=== PATIENT | male | born 1970 | race Two or more races ===

== ENCOUNTER 2021-01-14 16:55 | Inpatient (IN) | payer OTHER ==
[~2021-01-14] VITALS: Ht 180.3 cm; Wt 61.7 kg
--- NOTE | 2021-01-14 17:30 | NUR ---
, from home, c/o abd pain since last night, and nausea 10/10 pain scale. Patient paraplegic, a/ox4, breathing even and unlabored, no sob noted. Placed on the bus monitor. patient is now c/o headache.
--- NOTE | 2021-01-14 17:40 | NUR ---
DR. MEZA AT BEDSIDE FOR EVAL
--- NOTE | 2021-01-14 17:49 | NUR ---
IV LINE ESTABLISHED, BLOOD DRAWN AND SENT TO LAB.
[2021-01-14] MEDS ORDERED: MORPHINE SULFATE INJ 4 MG/ML DISP.SYRIN ONE (17:52)
[2021-01-14] MEDS ORDERED: ONDANSETRON HCL/PF 4 MG/2 ML VIAL ONE (17:52)
[2021-01-14] MEDS ORDERED: MORPHINE SULFATE INJ 2 MG/ML DISP.SYRIN IV ONE (18:00)
[2021-01-14] MEDS ORDERED: ONDANSETRON HCL/PF 4 MG/2 ML VIAL IVP ONE (18:00)
[2021-01-14 18:09] LABS: BASOPHILS # (AUTO) 0.1 K/uL (0.0-0.2); BASOPHILS % (AUTO) 0.6 % (0.0-2.0); HEMATOCRIT 44 % (39-51); LYMPHOCYTES # (AUTO) 2.2 K/uL (0.8-4.8); LYMPHOCYTES % (AUTO) 24.5 % (20.0-44.0); MEAN CORPUSCULAR HGB CONC 34 g/dl (31.0-36.0); MEAN CORPUSCULAR VOLUME 86 fL (80-96); MONOCYTES # (AUTO) 0.4 K/uL (0.1-1.30); MONOCYTES % (AUTO) 4.5 % (2.0-12.0); NEUTROPHILS # (AUTO) 6.1 K/uL (1.8-8.9); NEUTROPHILS % (AUTO) 69.4 % (43.0-81.0); PLATELET COUNT (AUTO) 243 K/uL (150-450); RED BLOOD CELL COUNT(AUTO) 5.08 MIL/uL (4.5-6.0); WHITE BLOOD COUNT (AUTO) 8.8 K/uL (4.3-11.0)
[2021-01-14 18:17] LABS: BILIRUBIN,URINE NEGATIVE (NEGATIVE); COLOR,URINE YELLOW (YELLOW); LEUKOCYTE ESTERASE ,URINE NEGATIVE (NEGATIVE); NITRITE, URINE NEGATIVE (NEGATIVE); PROTEIN,URINE NEGATIVE (NEGATIVE); UGLUCOSE NEGATIVE (NEGATIVE); UROBILINOGEN,URINE 0.2 EU/dL (0.2)
[2021-01-14 18:30] LABS: CALCIUM, SERUM 9.5 mg/dL (8.5-10.1); CARBON DIOXIDE 16 mmol/L (21-32); CHLORIDE 102 mmol/L (98-107); GLUCOSE 119 mg/dL (74-106); POTASSIUM 4.6 mmol/L (3.5-5.1); SODIUM SERUM 137 mmol/L (136-145); UREA NITROGEN, BLOOD 18 mg/dL (7-18)
[2021-01-14 18:36] LABS: ALANINE AMINOTRANSFERASE 26 U/L (12-78); ALBUMIN 4.2 g/dL (3.4-5.0); ALKALINE PHOSPHATASE 102 U/L (46-116); ASPARTATE AMINOTRANSFERASE 17 U/L (15-37); BILIRUBIN,DIRECT 0.1 mg/dL (0.0-0.2); BILIRUBIN,TOTAL 0.5 mg/dL (0.2-1.0); LIPASE 235 U/L (73-393); TOTAL PROTEIN, SERUM 8.1 g/dL (6.4-8.2)
[2021-01-14 18:57] LABS: ABG BASE EXCESS -0.2 mmol/L; ABG OXYGEN SATURATION 98.1 % (92.0-98.5); ABG PCO2 16.8 mmHg (35.0-45.0); ABG PH 7.637 (7.350-7.450); ABG PO2 108.9 mmHg (75.0-100.0); AaDO2 20.7 mmHg; COHb 0.9 % (0.5-1.5); MetHb 0.4 % (0.0-1.5); O2Hb 96.8 % (94.0-97.0); SITE, ABG Right Radial; VENT MODE, BG room air
[2021-01-14] MEDS ORDERED: IV NS 0.9% 1,000 ML BAG IV ONE ×2 (19:00→20:00)
[2021-01-14] MEDS ORDERED: HYDROMORPHONE 1 MG/1 ML DISP.SYRIN IV ONE (19:30)
[2021-01-14 19:37] LABS: ACETAMINOPHEN 0 ug/ml (10-30); ALCOHOL, BLOOD < 3 mg/dL (0-0)
--- NOTE | 2021-01-14 19:38 | NUR ---
LACTIC 3.6
--- NOTE | 2021-01-14 19:39 | NUR ---
PATIENT TAKEN TO CT
[2021-01-14] MEDS ORDERED: HYDROMORPHONE 1 MG/1 ML DISP.SYRIN ONE (19:45)
--- NOTE | 2021-01-14 19:53 | NUR ---
COVID SWAB COLLECTED AND SENT TO LAB
[2021-01-14] MEDS ORDERED: PIPERACILLIN /TAZOBACTAM 3.375 G in IV D5W 50 ML IV ONE (20:00)
--- NOTE | 2021-01-14 20:11 | NUR ---
CALLED DR. RAO AND LEFT VOICEMAIL ON [phone]
[2021-01-14] MEDS ORDERED: PIPERACILLIN /TAZOBACTAM 3.375 G VIAL IV ONE (20:22)
--- NOTE | 2021-01-14 20:26 | NUR ---
Erasto tse in EDM - 01/14/21 at [address] BARAHONA FOR ED CONSULT AT [phone]
--- NOTE | 2021-01-14 20:27 | NUR ---
CALLED DR. BARAHONA FOR ED CONSULT AT [phone]
--- NOTE | 2021-01-14 20:28 | NUR ---
DR. MEZA AND DR. BARAHONA ARE SPEAKING TO EACH OTHER
[2021-01-14] MEDS ORDERED: IOHEXOL-350 100 ML VIAL IV ONE (20:46)
[2021-01-14] MEDS ORDERED: IV NS 0.9% 250 ML IV ONE (20:47)
[2021-01-14 22:49] LABS: ABG BASE EXCESS -5.7 mmol/L; ABG OXYGEN SATURATION 96.1 % (92.0-98.5); ABG PCO2 39.4 mmHg (35.0-45.0); ABG PH 7.322 (7.350-7.450); ABG PO2 95.6 mmHg (75.0-100.0); COHb 0.3 % (0.5-1.5); MetHb 0.5 % (0.0-1.5); O2Hb 95.3 % (94.0-97.0); SITE, ABG Left Radial; VENT MODE, BG room air
--- NOTE | 2021-01-14 23:07 | NUR ---
REPORT GIVEN TO DEISY GOULD
--- NOTE | 2021-01-14 23:29 | NUR ---
MS DEISY NOTES PT ARRIVED TO UNIT VIA GURNEY ACCOMPANIED BY EMT AND RN. PT A/O X4 SAO TOMEAN SPEAKING BUT UNDERSTANDS SOME EMIRATI. PT REPORTING NO PAIN OR DISCOMFORT AT THIS TIME. PT ON ROOM AIR TOLERATING WELL. PT HAS IV ACCESS ON THE LAC 20G INTACT NO REDNESS OR SWELLING AT SITE. NOTED PATIENT WITH SACRAL SCARS PICTURES TAKEN AND PLACED IN CHART. PT ORIENTED TO ROOM AND UNIT. ALL NURSING NEEDS MET AT THIS TIME. ALL DUE MEDS GIVEN AND TOLERATED WELL. HOB ELEVATED FOR SAFETY BED IN A LOW LOCKED POSITION FOR SAFETY. PT MED RECON DONE. MEDICATIONS TAKEN AND WILL BE GIVEN TO PHARMACY IN THE AM. WILL OCNTINUE TO MONITOR. Addendum: 01/15/21 at 0639 by CHUCK ALDANA RN PT HERE FOR ABDOMINAL PAIN WITH N/V . PER PT HE HAS HAD THIS PAIN BEFORE AND WAS ABLE TO RELIEVE THE PAIN BY DOING A SUPPOSITORY (PT IS DEPENDENT ON THEM DAILY AND TAKING ANTI GAS MEDICATION WITH SOMETIMES MANUAL PRESSURE TO THE ABDOMINAL AREA TO RELIEVE GAS. HOWEVER PAIN HAS PERSISTED DESPITE ALL THE USUAL INTERVENTIONS HE DOES AT HOME. PT STATES HE WAS ALSO TAKING ATB FOR UTI FOR THE PAST 5 DAYS.
[2021-01-14] MEDS ORDERED: Z GUARD REMEDY 2 OZ OINT TP PRN (23:30)
[2021-01-14] MEDS ORDERED: ACETAMINOPHEN 325 MG TABLET PO PRN (23:30)
[2021-01-14] MEDS ORDERED: MAG HYDROX/AL HYDROX/SIMETH 30 ML UDC PO PRN (23:30)
[2021-01-14] MEDS ORDERED: MAGNESIUM HYDROXIDE 30 ML UDC PO PRN (23:30)
--- NOTE | 2021-01-14 23:45 | NUR ---
PATIENT TRANSFERRED UNDER ACLS
[2021-01-15] MEDS ORDERED: SULF1TAB47 PO (00:15)
[2021-01-15] MEDS ORDERED: LACT10SO68 PO (00:15)
[2021-01-15] MEDS ORDERED: BACL20TA PO (00:15)
[2021-01-15] MEDS ORDERED: DICY10CA37 PO (00:15)
[2021-01-15] MEDS: ENOXAPARIN SODIUM 40 MG/0.4 ML DISP.SYRIN SQ SCH ×2 (00:35→22:25)
[2021-01-15] MEDS: MORPHINE SULFATE INJ 2 MG/ML DISP.SYRIN IV PRN ×2 (00:36→04:40)
[2021-01-15] MEDS: IV NS 0.9% 1,000 ML IV PRN ×2 (00:37→14:50)
--- NOTE | 2021-01-15 01:00 | NUR ---
MS RN NOTES PT REPORTING ABDOMINAL PAIN 8/10 ON A NUMERIC PAIN SCALE. PRN PAIN MEDICATION PROVIDED AND TOLERATED WELL. PT STARTED ON NS @ 75ML.HR. WILL CONTINUE TO MONITOR.
[2021-01-15 04:00] VITALS: BP 166/105
--- NOTE | 2021-01-15 05:06 | NUR ---
MS RN NOTES PRN MORPHINE GIVEN PT HAD 8/10 ON A NUMERIC PAIN SCALE. WILL CONTINUE TO MONITOR.
[2021-01-15] MEDS: ONDANSETRON HCL/PF 4 MG/2 ML VIAL IVP PRN ×3 (05:11→22:33)
[2021-01-15] MEDS ORDERED: BISACODYL SUPP (10 MG) 10 MG/SUPP.RECT SUPP.RECT RC PRN (05:30)
[2021-01-15] MEDS: HYDROCODONE/APAP 5/325MG TABLET PO PRN ×2 (06:02→16:15)
--- NOTE | 2021-01-15 06:02 | NUR ---
MS OLIVAS NOTES PT GIVEN SUPPOSITORY FOR CONSTIPATION AND NORCO FOR BREAKTHROUGH PAIN. WILL CONTINUE TO MONITOR Addendum: 01/15/21 at 0652 by CHUCK ALDANA RN ZOFRAN GIVEN FOR NAUSEA WELL
--- NOTE | 2021-01-15 06:18 | NUR ---
MS RN NOTES REPORTED TO LEO AGUAYO PT STATED MORPHINE ISN'T VERY EFFECTIVE FOR PAIN MANAGEMENT APARTMENT MAINTENANCE SUPERVISOR AND THAT PT SBP IS 166/100. RECEIVED NEW ORDERS TO D/C MORPHINE AND START PT ON DILAUDID 0.5. WILL CONTINUE TO MONITOR.
--- NOTE | 2021-01-15 06:48 | NUR ---
MS RN NOTES PT A/O X4 AWAKE ALL DUE MEDS GIVEN AND TOLERATED WELL. ALL NURSING NEEDS MET. PT KEPT CLEAN AND DRY AT ALL TIMES. WILL ENDORSE CARE TO DAY SHIFT NURSE.
[2021-01-15 07:19] LABS: BASOPHILS % (AUTO) 0.6 % (0.0-2.0); EOSINOPHILS % (AUTO) 1.4 % (0.0-6.0); HEMATOCRIT 37 % (39-51); HEMOGLOBIN 12.6 g/dL (13.5-17.5); LYMPHOCYTES # (AUTO) 1.4 K/uL (0.8-4.8); LYMPHOCYTES % (AUTO) 19.3 % (20.0-44.0); MEAN CORPUSCULAR HGB CONC 34 g/dl (31.0-36.0); MEAN CORPUSCULAR VOLUME 88 fL (80-96); MONOCYTES # (AUTO) 0.4 K/uL (0.1-1.30); MONOCYTES % (AUTO) 5.7 % (2.0-12.0); NEUTROPHILS # (AUTO) 5.2 K/uL (1.8-8.9); PLATELET COUNT (AUTO) 215 K/uL (150-450); RED BLOOD CELL COUNT(AUTO) 4.27 MIL/uL (4.5-6.0); WHITE BLOOD COUNT (AUTO) 7.1 K/uL (4.3-11.0)
[2021-01-15 07:51] LABS: CALCIUM, SERUM 8.4 mg/dL (8.5-10.1); CREATININE 0.7 mg/dL (0.6-1.3); PHOSPHORUS 3.4 mg/dL (2.5-4.9); POTASSIUM 3.9 mmol/L (3.5-5.1)
[2021-01-15] MEDS ORDERED: ONDA4TAB5 PO (07:51)
[2021-01-15] MEDS ORDERED: DOCU-141 PO (07:51)
[2021-01-15 07:55] LABS: THYROID STIMULATING HORMONE 1.572 uIU/mL (0.358-3.74)
--- NOTE | 2021-01-15 07:56 | NUR ---
FIELD OBSERVER OPENING NOTES RECEIVED PATIENT IN BED, AWAKE, A/O X4. PATIENT ON ROOM AIR; BREATHING EVEN AND UNLABORED; NO SOB AT THIS TIME. TELE MONITOR WITH A READING OF SR 65. NO COMPLAINS OF PAIN AT THIS MOMENT. LAC IV ACCESS G #20 PRESENT AND INTACT INFUSING NS @ 75 MLS/HR. SAFETY PRECAUTIONS IN PLACE; BED IN LOW POSITION AND LOCKED, RAILS UP X2, CALL LIGHT WITHIN REACH. WILL CONTINUE TO MONITOR PATIENT.
[2021-01-15 08:00] VITALS: BP 114/64
[2021-01-15] MEDS: HYDROMORPHONE 1 MG/1 ML DISP.SYRIN IV PRN ×4 (08:30→22:26)
[2021-01-15] MEDS: PANTOPRAZOLE 40 MG TABLET.DR PO SCH (08:34)
--- NOTE | 2021-01-15 08:34 | NUR ---
ERP IMPLEMENTATION CONSULTANT NOTES PATIENT COMPLAINING OF PAIN 9 OUT OF 10 IN HIS ABDOMINAL AREA. PRN DILAUDID ADMINISTERED. WILL REASSESS.
[2021-01-15] MEDS ORDERED: DICYCLOMINE HCL 10 MG CAPSULE PO PRN (10:30)
[2021-01-15] MEDS ORDERED: DOCUSATE SODIUM 100 MG CAPSULE PO PRN (10:30)
[2021-01-15] MEDS ORDERED: Medication Not On Formulary EA (Ondansetron Hcl (Zofran) 4 MG) PO PRN (10:30)
[2021-01-15] MEDS ORDERED: LACTULOSE 10 G/15 ML UDC (PYXIS) PO PRN (11:00)
[2021-01-15] MEDS ORDERED: PARO30TA74 PO (12:06)
[2021-01-15] MEDS: BACLOFEN (10 MG) 10 MG TABLET PO SCH ×2 (12:22→16:47)
[2021-01-15] MEDS: PAROXETINE HCL 20 MG TABLET PO SCH (12:23)
[2021-01-15 13:17] VITALS: BP 142/98
--- NOTE | 2021-01-15 15:20 | NUR ---
ATV MECHANIC NOTES PATIENT COMPLAINING OF PAIN 8 OUT OF 10 IN HIS ABDOMINAL AREA. PRN DILAUDID ADMINISTERED. WILL REASSESS.
--- NOTE | 2021-01-15 15:29 | NUR ---
HIGH SCHOOL MUSIC INSTRUCTOR NOTES PATIENT COMPLAINING OF NAUSEA; ASKING FOR NAUSEA MEDICATION. PRN ZOFRAN ADMINISTER. WILL REASSESS.
[2021-01-15 16:14] VITALS: BP 142/92
--- NOTE | 2021-01-15 16:35 | NUR ---
RN NOTE PATIENT IS STILL IN SO MUCH PAIN AFTER GETTING DILAUDID 0.5 MG AND NORCO 5/[address] CINTRON AND ORDERED TO GIVE 1 MG DILAUDID NOW AND CONTINUE EVERY Q3H.
[2021-01-15] MEDS: SULFAMETH/TRIMETH 800/160 MG 1 UDTAB TABLET PO SCH (16:47)
--- NOTE | 2021-01-15 18:33 | NUR ---
COLLAR BASTER JUMPBASTING CLOSING NOTES PATIENT IN BED, AWAKE, A/O X4. PATIENT ON ROOM AIR; BREATHING EVEN AND UNLABORED; NO SOB AT THIS TIME. TELE MONITOR WITH A READING OF SR 70. PATIENT VERBALIZES SOME PAIN, PAIN MEDICATION NOT DUE AT THIS TIME, MD AWARE. LAC IV ACCESS G #20 PRESENT AND INTACT INFUSING NS @ 75 MLS/HR. MEDICATIONS GIVEN ORDERED. SAFETY PRECAUTIONS IN PLACE; BED IN LOW POSITION AND LOCKED, RAILS UP X2, CALL LIGHT WITHIN REACH. WILL ENDORSE TO ONCOMING SHIFT
[2021-01-15 20:00] VITALS: BP 84/50
[2021-01-16] VITALS: BP 81/43
[2021-01-16 00:30] VITALS: BP 82/44
--- NOTE | 2021-01-16 00:30 | NUR ---
patient bp is low from midnight vital signs at 81/43 hr 66 went in to check on patient patient awaken by voice and touch. patient denies dizziness. pt states, "I feel fine, just sleepy." rechecked vital signs found to be simialr at 82/44 hr 62 will cont to monitor for s/s of hypotension.
[2021-01-16 04:00] VITALS: BP 74/43
[2021-01-16] MEDS: IV NS 0.9% 1,000 ML IV PRN ×2 (04:03→23:58)
[2021-01-16] MEDS: HYDROMORPHONE 1 MG/1 ML DISP.SYRIN IV PRN (05:30)
[2021-01-16] MEDS: ONDANSETRON HCL/PF 4 MG/2 ML VIAL IVP PRN (06:19)
--- NOTE | 2021-01-16 06:46 | NUR ---
CITRIX CONSULTANT CLOSING NOTES PATIENT IN BED, AWAKE, A/O X4. PATIENT ON ROOM AIR; BREATHING EVEN AND UNLABORED; DENIES SOB. TELE MONITOR WITH A READING OF SR . LFA #22 INSERTED PRESENT AND INTACT INFUSING NS @ 75 MLS/HR. SAFETY PRECAUTIONS IN PLACE; BED IN LOW POSITION AND LOCKED, RAILS UP X2, CALL LIGHT WITHIN REACH. WILL ENDORSE TO ONCOMING SHIFT
--- NOTE | 2021-01-16 07:30 | NUR ---
MACHINE STITCHER NOTES PT IN BED, AWAKE, ALERT AND ORIENTED, DENIES PAIN OR ANY DISCOMFORT AT THIS TIME, RESPIRATIONS NORMAL, IV FLUIDS INFUSING WELL, CALL LIGHT WITHIN REACH, REPOSITIONED FOR COMFORT, ASSISTED WITH BREAKFAST, TOLERATES WELL, NEEDS ATTENDED.
[2021-01-16 08:21] VITALS: BP 103/56
[2021-01-16] MEDS: BACLOFEN (10 MG) 10 MG TABLET PO SCH ×3 (08:54→16:44)
[2021-01-16] MEDS: PAROXETINE HCL 20 MG TABLET PO SCH (08:55)
[2021-01-16] MEDS: SULFAMETH/TRIMETH 800/160 MG 1 UDTAB TABLET PO SCH ×2 (08:55→16:44)
[2021-01-16] MEDS: PANTOPRAZOLE 40 MG TABLET.DR PO SCH (08:55)
[2021-01-16 12:00] VITALS: BP 138/88
--- NOTE | 2021-01-16 18:56 | NUR ---
BRAILLE DUPLICATING MACHINE OPERATOR CLOSING NOTES PATIENT ON BED, ALERT AND ORIENTED X4. ABLE TO MAKE NEEDS KNOWN. DENIES SOB. TELEMONITOR WITH A READING OF NSR @ 88BPM. IV FLUIDS INFUSING WELL. DENIES PAIN OR DISCOMFORT AT THIS TIME. PATIENT SAFETY MEASURES IN PLACE. BED IN LOWEST LOCKED POSITION, SIDE RAILS UP X2, CALL LIGHT WITHIN REACH, BED ALARMS ON. WILL ENDORSE TO THE NEXT SHIFT FOR MARQUES.
[2021-01-16 20:00] VITALS: BP 84/48
--- NOTE | 2021-01-16 23:34 | NUR ---
ECONOMETRICS PROFESSOR RECEIVING NOTE PATIENT ENDORSED TO ME BY
--- NOTE | 2021-01-16 23:39 | NUR ---
HUMAN RESOURCES SUPERVISOR NOTES NO S/S OF DISTRESS. NO C/O PAIN. PATIENT QUADRIPLEGIC. TELE MONITOR READING SR. SAFETY IN PLACE. WILL CONTINUE TO MONITOR.
[2021-01-16] MEDS: ENOXAPARIN SODIUM 40 MG/0.4 ML DISP.SYRIN SQ SCH (23:41)
[2021-01-16] MEDS: HYDROCODONE/APAP 5/325MG TABLET PO PRN (23:51)
--- NOTE | 2021-01-16 23:54 | NUR ---
COMMUNITY ARTS OFFICER NOTES PATIENT C/O 7/10 PAIN AFTER REPOSITIONING. GIVEN NORCO 5-325. WILL REASSESS AND CONTINUE TO MONITOR.
[2021-01-17] VITALS: BP 138/98
[2021-01-17] MEDS: ONDANSETRON HCL/PF 4 MG/2 ML VIAL IVP PRN (06:31)
--- NOTE | 2021-01-17 06:35 | NUR ---
BOWLING TEACHER NOTES PATIENT C/O NAUSEA. GIVEN ZOFRAN PRN 2ML AT THIS TIME. WILL REASSESS AND CONTINUE TO MONITOR.
[2021-01-17 06:52] LABS: BASOPHILS % (AUTO) 0.5 % (0.0-2.0); EOSINOPHILS % (AUTO) 1.3 % (0.0-6.0); HEMATOCRIT 39 % (39-51); LYMPHOCYTES % (AUTO) 38.6 % (20.0-44.0); MEAN CORPUSCULAR HGB CONC 33 g/dl (31.0-36.0); MEAN CORPUSCULAR VOLUME 87 fL (80-96); MONOCYTES # (AUTO) 0.4 K/uL (0.1-1.30); MONOCYTES % (AUTO) 5.5 % (2.0-12.0); NEUTROPHILS # (AUTO) 4.2 K/uL (1.8-8.9); NEUTROPHILS % (AUTO) 54.1 % (43.0-81.0); PLATELET COUNT (AUTO) 233 K/uL (150-450); RED BLOOD CELL COUNT(AUTO) 4.49 MIL/uL (4.5-6.0); WHITE BLOOD COUNT (AUTO) 7.8 K/uL (4.3-11.0)
--- NOTE | 2021-01-17 06:53 | NUR ---
WOOD ROUTER NOTES PATIENT SLEEPING COMFORTABLY IN BED. A/OX4. NAUSEA AND PAIN MANAGED WITH MEDICATION. NO S/S OF APPARENT DISTRESS. TELE MONITOR READING SR 70'S. NO SIGNIFICANT CHANGE SINCE LAST SHIFT. SAFETY KEPT IN PLACE THE WHOLE SHIFT. PATIENT TURNED AND REPOSITIONED Q2HRS. ALL NEEDS ATTENDED. WILL ENDORSE CARE TO MORNING SHIFT RN.
[2021-01-17 07:23] LABS: ALBUMIN 3.4 g/dL (3.4-5.0); BILIRUBIN,DIRECT 0.1 mg/dL (0.0-0.2); BILIRUBIN,TOTAL 0.3 mg/dL (0.2-1.0); CALCIUM, SERUM 8.7 mg/dL (8.5-10.1); CREATININE 0.7 mg/dL (0.6-1.3); POTASSIUM 4.1 mmol/L (3.5-5.1); TOTAL PROTEIN, SERUM 6.8 g/dL (6.4-8.2)
--- NOTE | 2021-01-17 07:30 | NUR ---
SAVE ALL OPERATOR OPENING NOTES PT IN BED, AWAKE, A/OX4, DENIES ANY PAIN OR DISCOMFORT AT THIS TIME. RESPIRATIONS EVEN AND UNLABORED, ON ROOM AIR. IV ACCESS ON L-FA#22 INTACT AND PATENT. REPOSITIONED FOR COMFORT IN BED. SAFETY MEASURES IN PLACE: BED IN LOWEST LOCKED POSITION, S/R UP X2, CALL LIGHT WITHIN REACH. PT IN NO ACUTE DISTRESS. WILL CONTINUE TO MONITOR.
[2021-01-17 08:00] VITALS: BP 151/98
[2021-01-17] MEDS: SULFAMETH/TRIMETH 800/160 MG 1 UDTAB TABLET PO SCH (08:39)
[2021-01-17] MEDS: BACLOFEN (10 MG) 10 MG TABLET PO SCH ×2 (08:39→12:34)
[2021-01-17] MEDS: PAROXETINE HCL 20 MG TABLET PO SCH (08:39)
[2021-01-17] MEDS: PANTOPRAZOLE 40 MG TABLET.DR PO SCH (08:39)
[2021-01-17 12:00] VITALS: BP 92/67
--- NOTE | 2021-01-17 16:00 | NUR ---
MOTTLER MACHINE FEEDER NOTE PT AWAKE, A/O X4, DENIES ANY PAIN OR DISCOMFORT, NO SOB. DISCHARGE INSTRUCTIONS AND MED TEACHING PROVIDED, AND PT VERBALIZE UNDERSTANDING. ALL BELONGINGS CHECKED. IV LINE ON L-FA REMOVED AND TOLERATED WELL. DISCHARGED TO HOME, PICKED UP BY TWO PERSONNEL OF [facility] VIA GURNEY. PT'S MOM, KEVYN, AWARE AND CONFIRMED SHE IS AT HOME TO RECEIVE PT. PT LEFT IN STABLE CONDITION.
== END 2021-01-17 16:00 | disposition home or self-care (01) | DRG 254 ==
LOC: ER 16:58 → TELE 22:47
PROVIDERS: ADMIT Registered Nurse; ATTEND Internal Medicine
DX: K59.00 Constipation, unspecified (principal); G82.50 Quadriplegia, unspecified; E87.3 Alkalosis; Z86.12 Personal history of poliomyelitis; F41.9 Anxiety disorder, unspecified; Z20.822 Contact with and (suspected) exposure to COVID-19; J43.9 Emphysema, unspecified; K57.30 Diverticulosis of large intestine without perforation or abscess without bleeding; N30.90 Cystitis, unspecified without hematuria; N32.3 Diverticulum of bladder; B96.89 Other specified bacterial agents as the cause of diseases classified elsewhere
CPT/HCPCS: 36415; 36600; 70450-TC; 71045-TC; 71260-TC; 80048-TC; 80061-TC; 80076-TC; 82803-TC; 83605-TC; 83690-TC; 83735-TC; 84100-TC; 84443-TC; 84484-TC; 85025-TC; 87040-TC; 87081-TC; 87086-TC; C9803; G0378; G0480; J1170; J1650; J2270; J2405; J2543; J7030; J7050; J7060; Q9967

== ENCOUNTER 2022-02-21 11:25 | Inpatient (IN) | payer OTHER ==
[~2022-02-21] VITALS: Ht 162.6 cm; Wt 64.4 kg
[2022-02-21] VITALS (28 sets, daily range): BP systolic 91–181; BP diastolic 59–119
[~2022-02-21 11:25] MED LIST: BACL20TA PO; DICY10CA37 PO; DOCU-141 PO; LACT10SO68 PO; ONDA4TAB5 PO; PARO30TA74 PO
--- NOTE | 2022-02-21 11:34 | NUR ---
TO ER BED 8. [id number] FROM THE [facility] C/O ABDOMINAL PAIN, 04/01. ATTACHED TO MONITOR, HEART RATE ELEVATED, MD AWARE. DR ADAME AT BEDSIDE. AWAITING MD ORDERS.
[2022-02-21] MEDS ORDERED: ONDANSETRON HCL/PF 4 MG/2 ML VIAL ONE (11:40)
[2022-02-21] MEDS ORDERED: MORPHINE SULFATE INJ 4 MG/ML DISP.SYRIN ONE (11:40)
[2022-02-21] MEDS ORDERED: ACETAMINOPHEN 650 MG/SUPP.RECT RC ONE ×2 (11:41→12:00)
[2022-02-21] MEDS ORDERED: ACETAMINOPHEN ES 500 MG TABLET ONE (11:48)
[2022-02-21] MEDS ORDERED: SIMV-49 PO (11:56)
[2022-02-21] MEDS ORDERED: TAMS-12 PO (11:56)
[2022-02-21] MEDS ORDERED: OMEG-72 PO (11:56)
--- NOTE | 2022-02-21 11:57 | NUR ---
URINE COLLECTED AND SENT TO THE LAB COVID ANTIGEN SWAB DONE AND SENT TO THE LAB
--- NOTE | 2022-02-21 11:58 | NUR ---
MOVE SHEET SUBMITTED.
[2022-02-21] MEDS ORDERED: IV NS 0.9% 1,000 ML BAG IV ONE ×3 (12:00→14:30)
[2022-02-21] MEDS ORDERED: ONDANSETRON HCL/PF - ER 4 MG/2 ML VIAL IV ONE (12:00)
[2022-02-21] MEDS ORDERED: PIPERACILLIN /TAZOBACTAM 3.375 G in IV D5W 50 ML IV ONE (12:00)
[2022-02-21] MEDS ORDERED: MORPHINE SULFATE INJ 2 MG/ML DISP.SYRIN IV ONE (12:00)
[2022-02-21] MEDS ORDERED: HYDROMORPHONE 1 MG/1 ML DISP.SYRIN IV ONE (12:00)
[2022-02-21] MEDS ORDERED: HYDROMORPHONE 1 MG/1 ML DISP.SYRIN ONE (12:02)
[2022-02-21 12:28] LABS: BASOPHILS % (AUTO) 0.3 % (0.0-2.0); EOSINOPHILS % (AUTO) 0.5 % (0.0-6.0); HEMATOCRIT 39 % (39-51); HEMOGLOBIN 12.8 g/dL (13.5-17.5); LYMPHOCYTES # (AUTO) 1.8 K/uL (0.8-4.8); LYMPHOCYTES % (AUTO) 14.1 % (20.0-44.0); MEAN CORPUSCULAR HGB CONC 33 g/dl (31.0-36.0); MEAN CORPUSCULAR VOLUME 88 fL (80-96); MONOCYTES # (AUTO) 0.4 K/uL (0.1-1.30); MONOCYTES % (AUTO) 3.2 % (2.0-12.0); NEUTROPHILS # (AUTO) 10.2 K/uL (1.8-8.9); NEUTROPHILS % (AUTO) 81.9 % (43.0-81.0); PLATELET COUNT (AUTO) 327 K/uL (150-450); RED BLOOD CELL COUNT(AUTO) 4.48 MIL/uL (4.5-6.0); WHITE BLOOD COUNT (AUTO) 12.5 K/uL (4.3-11.0)
[2022-02-21 12:42] LABS: BILIRUBIN,URINE NEGATIVE (NEGATIVE); COLOR,URINE YELLOW (YELLOW); LEUKOCYTE ESTERASE ,URINE NEGATIVE (NEGATIVE); NITRITE, URINE NEGATIVE (NEGATIVE); PROTEIN,URINE NEGATIVE (NEGATIVE); UGLUCOSE NEGATIVE (NEGATIVE); UROBILINOGEN,URINE 0.2 EU/dL (0.2)
[2022-02-21 12:43] LABS: ALANINE AMINOTRANSFERASE 34 U/L (12-78); ALKALINE PHOSPHATASE 104 U/L (46-116); ASPARTATE AMINOTRANSFERASE 24 U/L (15-37); BILIRUBIN,DIRECT 0.2 mg/dL (0.0-0.2); BILIRUBIN,TOTAL 0.8 mg/dL (0.2-1.0); CALCIUM, SERUM 9.1 mg/dL (8.5-10.1); CARBON DIOXIDE 13 mmol/L (21-32); CHLORIDE 99 mmol/L (98-107); CREATININE 1.1 mg/dL (0.6-1.3); GLUCOSE 178 mg/dL (74-106); POTASSIUM 4.7 mmol/L (3.5-5.1); SODIUM SERUM 132 mmol/L (136-145); TOTAL PROTEIN, SERUM 7.9 g/dL (6.4-8.2); UREA NITROGEN, BLOOD 33 mg/dL (7-18)
[2022-02-21 12:45] LABS: BACTERIA,URINE Few /HPF (None Seen); RBC,URINE 0-2 /HPF (0-2); SQUAMOUS EPITHELIAL CELL,UR Few /HPF (None Seen); YEAST,URINE Few /HPF (None Seen)
[2022-02-21] MEDS ORDERED: ACETAMINOPHEN ES 500 MG TABLET PO ONE (13:00)
--- NOTE | 2022-02-21 13:41 | NUR ---
IV DISLODGED, 4X4 GUAZE APPLIED. ADDITIONAL IV ESTABLIHSED L WRIST 20G.
[2022-02-21] MEDS ORDERED: NOREPINEPHRINE 8 MG in IV NS 0.9% 250 ML IV ONE (14:30)
[2022-02-21 14:33] LABS: ABG BASE EXCESS -5.1 mmol/L; ABG PCO2 30.7 mmHg (35.0-45.0); ABG PH 7.401 (7.350-7.450); ABG PO2 70.5 mmHg (75.0-100.0); COHb 0.1 % (0.5-1.5); MetHb 0.1 % (0.0-1.5); O2Hb 92.6 % (94.0-97.0); SITE, ABG Right Radial; VENT MODE, BG RA
--- NOTE | 2022-02-21 14:43 | NUR ---
ROOM 257
--- NOTE | 2022-02-21 15:34 | NUR ---
PICC LINE INSERTED EJ RIGHT SIDE
--- NOTE | 2022-02-21 15:46 | NUR ---
REPORT GIVEN TO CLAY FOR MARQUES
[2022-02-21] MEDS ORDERED: MAG HYDROX/AL HYDROX/SIMETH 30 ML UDC PO PRN (16:30)
[2022-02-21] MEDS ORDERED: Z GUARD REMEDY 4 OZ OINT TP PRN (16:30)
[2022-02-21] MEDS ORDERED: ACETAMINOPHEN 325 MG TABLET PO PRN (16:30)
[2022-02-21] MEDS ORDERED: MAGNESIUM HYDROXIDE 30 ML UDC PO PRN (16:30)
--- NOTE | 2022-02-21 16:45 | NUR ---
RN NOTES RECEIVED PT FROM ER IN ROOM 257 , PT IS A/Ox3-4. ON RA, RESPIRATION EVEN AND UNLABORED , ON TELE ST HR IN 100'S , CONDOM CATH DRAINING TO GRAVITY WITH YELLOW CLEAR URINE, ALL FOUR EXTREMITIES CONTRACTED , IV SITES CDI, MULTIPLIES SCARRING NOTED ON PT SKIN, WOUND CONSULT ORDERED , SR UP x3, CALL LIGHT WITHIN EASY REACH, BED LOCKED AND IN LOWEST POSITION, CONTINUE TO MONITOR.
--- NOTE | 2022-02-21 16:48 | NUR ---
PT TRANSPORTED TO ICU WITH ACLS PROTOCOLS IN PLACE
[2022-02-21] MEDS: IV NS 0.9% 1,000 ML IV SCH (17:12)
[2022-02-21] MEDS: ENOXAPARIN SODIUM 40 MG/0.4 ML DISP.SYRIN SQ SCH (17:24)
[2022-02-21] MEDS ORDERED: NOREPINEPHRINE 8 MG in IV NS 0.9% 242 ML IV PRN (18:00)
--- NOTE | 2022-02-21 18:49 | NUR ---
RN NOTES PT REMAINS ON LEVO AT .06 MCG/KG/MIN FOR BP SUPPORT ,NO SIGNIFCANT CHANGES NOTED, WILL ENDORSE TO RENTAL AGENT NURSE FOR CONTINUITY OF CARE
--- NOTE | 2022-02-21 19:30 | NUR ---
RN note Received a 51 year old male, patient is awake, alert, non-verbal at this time. fatigue. Breathing even and unlabored. patient is on room air, tolerating well with no s/s of shortness of breath. On tele monitoring. no distress. denies chest pain. Skin is warm and dry to touch noted with right IJ central line, dressing intact. currently infusing levo at 0.06 mcg, NS at 125 ml/hr. External condom catheter draining yellow urine by gravity. Patient turned and repositioned. Bed low, in locked position, will continue to monitor.
[2022-02-21] MEDS: PIPERACILLIN /TAZOBACTAM 3.375 G in IV D5W 100 ML IV SCH (20:17)
[2022-02-21] MEDS ORDERED: IV NS 0.9% 250 ML IV PRN (20:30)
[2022-02-21] MEDS: ONDANSETRON HCL/PF 4 MG/2 ML VIAL IVP PRN (23:33)
[2022-02-21] MEDS: HYDROCODONE/APAP 5/325MG TABLET PO PRN (23:47)
[2022-02-22] VITALS (22 sets, daily range): BP systolic 92–154; BP diastolic 55–104
[2022-02-22] MEDS: IV NS 0.9% 1,000 ML IV SCH ×3 (00:55→16:36)
[2022-02-22] MEDS: PIPERACILLIN /TAZOBACTAM 3.375 G in IV D5W 100 ML IV SCH ×3 (03:17→20:40)
[2022-02-22 04:18] LABS: BASOPHILS % (AUTO) 0.4 % (0.0-2.0); EOSINOPHILS % (AUTO) 0.4 % (0.0-6.0); HEMATOCRIT 33 % (39-51); LYMPHOCYTES # (AUTO) 1.3 K/uL (0.8-4.8); LYMPHOCYTES % (AUTO) 15.3 % (20.0-44.0); MEAN CORPUSCULAR HGB CONC 33 g/dl (31.0-36.0); MEAN CORPUSCULAR VOLUME 88 fL (80-96); MONOCYTES # (AUTO) 0.3 K/uL (0.1-1.30); MONOCYTES % (AUTO) 4.1 % (2.0-12.0); NEUTROPHILS # (AUTO) 6.7 K/uL (1.8-8.9); NEUTROPHILS % (AUTO) 79.8 % (43.0-81.0); PLATELET COUNT (AUTO) 262 K/uL (150-450); RED BLOOD CELL COUNT(AUTO) 3.79 MIL/uL (4.5-6.0); WHITE BLOOD COUNT (AUTO) 8.4 K/uL (4.3-11.0)
[2022-02-22 04:50] LABS: CALCIUM, SERUM 8.1 mg/dL (8.5-10.1); CREATININE 0.7 mg/dL (0.6-1.3); MAGNESIUM 1.9 mg/dL (1.8-2.4); PHOSPHORUS 3.3 mg/dL (2.5-4.9); POTASSIUM 3.7 mmol/L (3.5-5.1)
--- NOTE | 2022-02-22 06:58 | NUR ---
WOUND CARE CONSULT: PT DID NOT PREFER TO BE TURNED AT THIS TIME. ASSESSMENT LIMITED TO LOWER AND UPPER EXTREMITIES AT THIS TIME. RT ELBOW SCARRING WITH DRY SCAB/CALLUS NOTED AND DISCOLORATION NOTED TO LEFT ELBOW WITHOUT TENDERNESS OR FLUCTUANCE, PRESENT ON ADMISSION. LEFT HEEL/POSTERIOR ANKLE NOTED TO HAVE SCARRING WITH CALLUS, PRESENT ON ADMISSION. ADMISSION PHOTO INDICATES SIGNIFICANT SCARRING TO SACRUM AND BILATERAL BUTTOCKS. RECOMMENDATIONS MADE FOR SKIN PROTECTION. DISCUSSED WITH NURSING STAFF. PT NOTED TO HAVE SPASMS OF LOWER EXTREMITIES AT TIMES. PT TO BE PLACED ON SPRAGGS ISOFLEX LOW AIRLOSS BED. MD IN AGREEMENT WITH PLAN OF CARE.
--- NOTE | 2022-02-22 07:25 | NUR ---
COMPENSATION SUPERVISOR OPENING NOTE: RECEIVED PT. IN BED, AWAKE, A/OX4, [place] SPEAKING BUT ABLE TO UNDERSTAND SIMPLE MONGOLIAN. ABLE TO MAKE NEEDS KNOWN. COMPLAINING OF NAUSEA AND ACHING 7/10 PAIN IN ABDOMEN RIGHT NOW. WILL ADMINISTER NORCO-[id number] AND ZOFRAN 4MG IV. WARDROBE CUSTODIAN READS NSR WITH HR OF 83 BPM. ON RA, NO S/S OF RESPIRATORY DISTRESS. PT. IS INCONTINENT, ON DIAPER AND CONDOM CATH, DRAINING CLEAR YELLOW URINE. PT. IS QUADRIPLEGIC. PT. HAS MULTIPLE SKIN ISSUES, WILL DO WOUND TREATMENT ORDERED. IV ACCESS ON RIGHT IJ WITH NS RUNNING AR 125ML/HR, DRESSING C/D/I. HE ALSO HAS L WRIST #20G, FLUSHING WELL, DRESSING C/D/I, SALINE LOCKED. IV SITES HAVE NO S/S OF INFILTRATION. WILL TURN AND REPOSITION AT LEAST Q2H. SAFETY MEASURES IN PLACE: BED IN LOWEST & LOCKED POSITION, CALL LIGHT WITHIN REACH, HOB ELEVATED AT 30 DEGREES, SIDE RAILS UP X3. WILL CONTINUE TO MONITOR PT. FOR ANY CHANGES.
[2022-02-22] MEDS: ONDANSETRON HCL/PF 4 MG/2 ML VIAL IVP PRN (07:47)
[2022-02-22] MEDS: HYDROCODONE/APAP 5/325MG TABLET PO PRN (07:48)
[2022-02-22] MEDS: MORPHINE SULFATE INJ 2 MG/ML DISP.SYRIN IV PRN (09:19)
[2022-02-22] MEDS: ENOXAPARIN SODIUM 40 MG/0.4 ML DISP.SYRIN SQ SCH (09:20)
--- NOTE | 2022-02-22 09:20 | NUR ---
CHIEF SCHOOL FINANCE OFFICER NOTE: PT. STILL COMPLAINING OF 8/10 ACHING PAIN IN ABDOMEN EVEN AFTER GIVING NORCO 5-325 1 TAB. MORPHINE 2MG IV WAS GIVEN PER MD ORDER. WILL CONTINUE TO MONITOR PT.'S PAIN LEVEL.
[2022-02-22] MEDS: ENSURE CLEAR 237 ML LIQUID (MIX BERRY) PO SCH ×2 (10:00→14:49)
--- NOTE | 2022-02-22 18:35 | NUR ---
NEW ACCOUNTS REPRESENTATIVECOMMUNITY ENGAGEMENT REPRESENTATIVE NOTE: TRANSFERRED PT. TO TELEMETRY UNIT IN 326-1 VIA GURNEY AT 1830. REPORT GIVEN TO POULTRY HATCHERY MANDEISY OTERO. PT. REMAINS AWAKE, A/OX4, TAMAZIGHT SPEAKING BUT ABLE TO UNDERSTAND SIMPLE WELSH. ABLE TO MAKE NEEDS KNOWN. NO COMPLAINTS OF PAIN/NAUSEA AT THIS TIME. SHEET TURNER READS NSR WITH HR OF 85 BPM. ON RA, NO S/S OF RESPIRATORY DISTRESS. PT. IS INCONTINENT, ON ABSORBENT PADS AND CONDOM CATH, DRAINING CLEAR YELLOW URINE. PT. IS QUADRIPLEGIC. PT. HAS MULTIPLE SKIN ISSUES, WOUND TREATMENT DONE ORDERED. BED BATH DONE. IV ACCESS ON RIGHT IJ WITH NS RUNNING AR 125ML/HR, DRESSING C/D/I. HE ALSO HAS L WRIST #20G, FLUSHING WELL, DRESSING C/D/I, SALINE LOCKED. IV SITES HAVE NO S/S OF INFILTRATION. TURNED AND REPOSITIONED PT AT LEAST Q2H. PT.'S CHART, BELONGINGS, AND MEDICATIONS HANDED OFF TO POULTRY HATCHERY MANDEISY OTERO. ENDORSED CONTINUITY OF CARE TO POULTRY HATCHERY MANDEISY OTERO AT BEDSIDE.
--- NOTE | 2022-02-22 18:50 | NUR ---
RN NOTE RECEIVED THIS 51 Y/O MALE PATIENT FROM ICU @1835, TRANSPORTED VIA BED, ACCOMPANIED BY DEISY ALANIZ. PATIENT IS A/O X4, VERBALLY RESPONSIVE, [place] SPEAKING BUT UNDERSTANDS SIMPLE LAO. NO SIGNS OF ACUTE DISTRESS NOTED. STABLE ON ROOM AIR, NO SOB NOTED. BREATHING EVEN AND UNLABORED. NOTED WITH IV ACCESS ON LEFT WRIST #20G, SALINE LOCKED AND CENTRAL LINE ON RIGHT IJ WITH 3 LUMENS, WITH NS @125ML/HR RUNNING. PLACED PATIENT ON TRANSPORTATION ASSISTANT, SHOWING SINUS RHYTHM, HR @85. ALSO NOTED WITH CONDOM CATHETER DRAINING CLEAR YELLOW URINE. VITAL SIGNS TAKEN FOLLOWS: 150/100, 85, 97.8, 22, SPO2 98% ON ROOM AIR. NO C/O PAIN AT THIS TIME. SAFETY MEASURE IN PLACE. BED IN LOWEST AND LOCKED POSITION, SIDE RAILS UP X4, CALL LIGHT PLACED WITHIN EASY REACH. WILL ENDORSE TO NEXT SHIFT FOR CONTINUITY OF CARE.
--- NOTE | 2022-02-22 19:40 | NUR ---
CROP SCOUT OPENING NOTES RECEIVED PATIENT IN BED; AWAKE, ALERT AND ORIENTED X4, VERBALLY RESPONSIVE, NORTH KOREAN SPEAKING UNDERSTANDS SIMPLE [place]. ON ROOM AIR, TOLERATING WELL. BREATHING EVEN AND NONLABORED. IN NO ACUTE DISTRESS. NO C/O PAIN OR DISCOMFORT AT THIS TIME. ON TELEMETRY MONITORING WITH READING OF SR HR-76 BPM. WITH IV ACCESS ON LEFT WRIST 20g: SALINE LOCKED. WITH CENTRAL LINE ON RIGHT IJ; PATENT AND INTACT WITH 3 LUMENS INFUSING WITH NS 1L REGULATED @ 125 ML/HR; FLUSHES WELL. WITH CONDOM CATHETER IN PLACE DRAINING TO CLEAR YELLOW URINE OUTPUT. SAFETY MEASURES IMPLEMENTED: CALL LIGHT AND TABLE WITHIN REACH, SIDE RAILS UP X 2, BED IN LOWEST AND LOCKED POSITION. WILL CONTINUE PLAN OF CARE.
[2022-02-23] VITALS: BP 140/86
[2022-02-23] MEDS: IV NS 0.9% 1,000 ML IV SCH (01:36)
[2022-02-23] MEDS: MORPHINE SULFATE INJ 2 MG/ML DISP.SYRIN IV PRN ×2 (03:02→16:55)
--- NOTE | 2022-02-23 03:02 | NUR ---
RN NOTES PATIENT C/O ABDOMINAL PAIN 01/30; PRN MORPHINE GIVEN IV ORDERED. WILL CONTINUE TO MONITOR AND REASSESS PT.
[2022-02-23 04:00] VITALS: BP 114/71
[2022-02-23] MEDS: PIPERACILLIN /TAZOBACTAM 3.375 G in IV D5W 100 ML IV SCH ×3 (04:14→22:34)
--- NOTE | 2022-02-23 06:50 | NUR ---
RN NOTES PATIENT REFUSED PICTURES TO BE TAKEN.
--- NOTE | 2022-02-23 07:05 | NUR ---
EASEMENT MAN CLOSING NOTES PATIENT IN BED; AWAKE, A/O X4, VERBALLY RESPONSIVE, FAROESE SPEAKING UNDERSTANDS SIMPLE BENGALI. STABLE ON ROOM AIR. RESPIRATIONS EVEN AND NONLABORED. NOT IN ANY FORM OF RESPIRATORY DISTRESS. NO C/O PAIN OR DISCOMFORT AT THIS TIME. TELEMETRY MONITORING READS SR HR - 75 BPM. IV ACCESS ON LEFT WRIST 20g: SALINE LOCKED. CENTRAL LINE ON RIGHT IJ WITH 3 LUMENS INFUSING WITH NS 1L REGULATED @ 125 ML/HR; FLUSHES WELL. WITH CONDOM CATHETER IN PLACE DRAINING TO CLEAR YELLOW URINE OUTPUT. SAFETY MEASURES IN PLACE: CALL LIGHT AND TABLE WITHIN REACH, SIDE RAILS UP X 3, BED IN LOWEST AND LOCKED POSITION. ENDORSED TO MORNING SHIFT FOR MARQUES.
[2022-02-23 08:00] VITALS: BP 143/99
[2022-02-23] MEDS: ENSURE CLEAR 237 ML LIQUID (MIX BERRY) PO SCH ×3 (08:00→16:24)
[2022-02-23] MEDS ORDERED: IV NS 0.9% 1,000 ML IV SCH (08:48)
[2022-02-23] MEDS ORDERED: MAGNESIUM CITRATE 296 ML BOTTLE PO ONE (09:30)
[2022-02-23] MEDS: ENOXAPARIN SODIUM 40 MG/0.4 ML DISP.SYRIN SQ SCH (09:38)
[2022-02-23] MEDS ORDERED: NA PHOS,M-B/NA PHOS,DI-BA 1 EA ENEMA RC ONE (11:00)
[2022-02-23] MEDS: LACTULOSE 10 G/15 ML UDC (PYXIS) PO SCH ×2 (11:00→16:24)
[2022-02-23 11:17] LABS: BASOPHILS % (AUTO) 0.6 % (0.0-2.0); EOSINOPHILS % (AUTO) 1.9 % (0.0-6.0); HEMATOCRIT 34 % (39-51); HEMOGLOBIN 11.2 g/dL (13.5-17.5); LYMPHOCYTES # (AUTO) 1.2 K/uL (0.8-4.8); LYMPHOCYTES % (AUTO) 24.7 % (20.0-44.0); MEAN CORPUSCULAR HGB CONC 33 g/dl (31.0-36.0); MEAN CORPUSCULAR VOLUME 88 fL (80-96); MONOCYTES # (AUTO) 0.2 K/uL (0.1-1.30); MONOCYTES % (AUTO) 3.9 % (2.0-12.0); NEUTROPHILS # (AUTO) 3.3 K/uL (1.8-8.9); NEUTROPHILS % (AUTO) 68.9 % (43.0-81.0); PLATELET COUNT (AUTO) 261 K/uL (150-450); RED BLOOD CELL COUNT(AUTO) 3.83 MIL/uL (4.5-6.0); WHITE BLOOD COUNT (AUTO) 4.8 K/uL (4.3-11.0)
[2022-02-23 11:44] LABS: CALCIUM, SERUM 8.7 mg/dL (8.5-10.1); CREATININE 0.6 mg/dL (0.6-1.3); MAGNESIUM 1.7 mg/dL (1.8-2.4); PHOSPHORUS 2.9 mg/dL (2.5-4.9)
[2022-02-23 12:00] VITALS: BP 100/57
[2022-02-23 16:00] VITALS: BP 142/108
[2022-02-23] MEDS ORDERED: POTASSIUM CHLORIDE 20 MEQ TAB.PRT.SR PO ONE (16:00)
--- NOTE | 2022-02-23 17:57 | NUR ---
END OF SHIFT SUMMARY A/O X4, ECUADOREAN SPEAKING QUADRIPLEGIC. ON RA SATURATING WELL PAIN MANAGED WELL WITH MORPHINE LOVENOX FOR VTE FLEET ENEMA DONE, BM X1 CONDOM CATH IN PLACE, DRAINING WELL SR ON THE TELEMONITOR SAFETY MEASURES AND FALL PRECAUTIONS MAINTAINED WILL ENDORSE CONTINUITY OF CARE TO ONCOMING SHIFT
--- NOTE | 2022-02-23 19:30 | NUR ---
LEATHER TANNER OPENING NOTE RECEIVED PATIENT IN BED, A/OX4. 1 VISITOR AT BEDSIDE. PATIENT QUADRIPLEGIC. NO S/S OF APPARENT DISTRESS IN ROOM AIR. DENIES PAIN NOR DISCOMFORT AT THIS TIME. PATIENT HAS RIJ ACCESS RUNNING NS @75MLS/HR. CONDOM CATH DRAINING CLEAR YELLOW URINE WITH SEDIMENTS. SAFETY IN PLACE. WILL CONTINUE WITH PLAN FOR PATIENT.
[2022-02-23 20:00] VITALS: BP 116/74
[2022-02-24] VITALS: BP 144/95
[2022-02-24] MEDS: PIPERACILLIN /TAZOBACTAM 3.375 G in IV D5W 100 ML IV SCH ×2 (04:17→12:50)
[2022-02-24 05:00] VITALS: BP 155/98
[2022-02-24 06:25] LABS: CALCIUM, SERUM 8.7 mg/dL (8.5-10.1); CREATININE 0.6 mg/dL (0.6-1.3); POTASSIUM 3.4 mmol/L (3.5-5.1)
[2022-02-24 06:35] LABS: BASOPHILS % (AUTO) 0.5 % (0.0-2.0); EOSINOPHILS % (AUTO) 2.2 % (0.0-6.0); HEMATOCRIT 33 % (39-51); HEMOGLOBIN 11.2 g/dL (13.5-17.5); LYMPHOCYTES # (AUTO) 1.4 K/uL (0.8-4.8); LYMPHOCYTES % (AUTO) 24.8 % (20.0-44.0); MEAN CORPUSCULAR HGB CONC 33 g/dl (31.0-36.0); MEAN CORPUSCULAR VOLUME 88 fL (80-96); MONOCYTES # (AUTO) 0.3 K/uL (0.1-1.30); MONOCYTES % (AUTO) 5.7 % (2.0-12.0); NEUTROPHILS # (AUTO) 3.7 K/uL (1.8-8.9); NEUTROPHILS % (AUTO) 66.8 % (43.0-81.0); PLATELET COUNT (AUTO) 254 K/uL (150-450); RED BLOOD CELL COUNT(AUTO) 3.79 MIL/uL (4.5-6.0); WHITE BLOOD COUNT (AUTO) 5.5 K/uL (4.3-11.0)
--- NOTE | 2022-02-24 07:08 | NUR ---
CLIENT PROJECT COORDINATOR OPENING NOTES RECEIVED PATIENT RESTING IN BED, A/Ox4. ON ROOM AIR NO S/S OF SOB OR RESPIRATORY DISTRESS. PATIENT IS ON TELEMONITORING SHOWING SINUS RHYTHM 70, NO C/O OF CARDIAC DISTRESS. IV ACCESS RIJ WITH NS 75 ML/HR RUNNING, INTACT AND PATENT. PATIENT IS BED REST, WITH CONDOM CATH. SKIN ISSUES: SACRAL SCARRING, BILATERAL BUTTOCKS, L HEEL ANKLE SCARRING, R ELBOW SCARRING. SAFETY MEASURES IN PLACE: BED LOCKED AND IN LOWEST POSITION, SIDE RAILS UP x2, CALL LIGHT WITHIN REACH, HOB ELEVATED. WILL CONTINUE TO MONITOR.
--- NOTE | 2022-02-24 07:29 | NUR ---
needs attended. endorsed to Mary for continuity of care plan. Addendum: 02/24/22 at 0730 by CHRISTINA WALDEN RN needs attended. endorsed to benita llamas continuity of care plan.
[2022-02-24 08:00] VITALS: BP 149/91
[2022-02-24] MEDS: ENSURE CLEAR 237 ML LIQUID (MIX BERRY) PO SCH ×2 (08:50→12:50)
[2022-02-24] MEDS ORDERED: POTASSIUM CHLORIDE 20 MEQ TAB.PRT.SR PO ONE (09:00)
[2022-02-24] MEDS ORDERED: MAGNESIUM OXIDE 400 MG TABLET PO SCH (09:00)
[2022-02-24] MEDS ORDERED: CLONIDINE HCL 0.1 MG TABLET PO PRN (09:00)
[2022-02-24] MEDS: LACTULOSE 10 G/15 ML UDC (PYXIS) PO SCH (09:41)
[2022-02-24] MEDS: ENOXAPARIN SODIUM 40 MG/0.4 ML DISP.SYRIN SQ SCH (09:44)
[2022-02-24] MEDS: HYDROCODONE/APAP 5/325MG TABLET PO PRN (12:56)
--- NOTE | 2022-02-24 13:00 | NUR ---
RN NOTES PATIENT COMPLAINED OF PAIN AFTER CARE WAS PROVIDED, PRN NARCO WAS ADMINISTERED @1256. WILL CONTINUE TO MONITOR.
[2022-02-24] MEDS: ONDANSETRON HCL/PF 4 MG/2 ML VIAL IVP PRN (15:31)
--- NOTE | 2022-02-24 16:02 | NUR ---
WHEEL ALIGNER NOTES PATIENT DISCHARGED HOME. STABLE A/Ox4, ABLE TO MAKE NEEDS KNOWN. STABLE ON ROOM AIR, NO COMPLAINED OF SOB OR RESPIRATORY DISTRESS. NO C/O OF CHEST PAIN OR CARDIAC DISTRESS. PATIENT DID COMPLAIN OF NAUSEA, PRN ZOFRAN ADMINISTERED. PATIENT GIVEN DISCHARGE INSTRUCTIONS AND HEALTH TEACHINGS, PATIENT VERBALIZED UNDERSTANDING, BUT UNABLE TO SIGN DUE TO QUADRIPLEGIA. RN, RENAEI WITNESSED TEACHINGS, INSTRUCTIONS, AND BELONGINGS LISTS. PATIENT HAS CONDOM CATHETER, OUTPUT 500 ML, CATHETER NOT REMOVED. PATIENT R JUGULAR LINE REMOVED, PRESSURE HELD FOR 10 MINUTES, NO S/S OF BLEEDING NOTED. PRESSURE DRESSING APPLIED. TELE MONITORING REMOVED, ID BAND REMOVED. PATIENT LEFT UNIT @ 1600 VIA GURNEY ACCOMPANIED BY [facility]. CHARGE NURSE AND MD AWARE OF DISCHARGE.
== END 2022-02-24 16:00 | disposition home or self-care (01) | DRG 815 ==
LOC: ER 11:32 → ICU 16:14 → TELE 02-22 18:20
PROVIDERS: ADMIT Internal Medicine; ATTEND Internal Medicine
DX: T67.01XA Heatstroke and sunstroke, initial encounter (principal); N17.0 Acute kidney failure with tubular necrosis; G82.50 Quadriplegia, unspecified; I95.9 Hypotension, unspecified; E27.8 Other specified disorders of adrenal gland; E87.2 Acidosis; E87.1 Hypo-osmolality and hyponatremia; Z20.822 Contact with and (suspected) exposure to COVID-19; Z59.00 Homelessness unspecified; W34.00XS Accidental discharge from unspecified firearms or gun, sequela; Z79.899 Other long term (current) drug therapy; X30.XXXA Exposure to excessive natural heat, initial encounter; Y92.9 Unspecified place or not applicable; E86.1 Hypovolemia; D64.9 Anemia, unspecified; F19.239 Other psychoactive substance dependence with withdrawal, unspecified; N40.0 Benign prostatic hyperplasia without lower urinary tract symptoms; N32.3 Diverticulum of bladder; K59.00 Constipation, unspecified; D72.829 Elevated white blood cell count, unspecified
CPT/HCPCS: 36415; 36600; 71045-TC; 80048-TC; 80076-TC; 81001; 82550-TC; 82803-TC; 83605-TC; 83735-TC; 84100-TC; 84484-TC; 85025-TC; 85730-TC; 87040-TC; 87081-TC; 87086-TC; A4349; A6403; C9803; G0378; J1170; J1650; J2270; J2405; J2543; J7030; J7040; J7050; J7060